=== PATIENT | female | born 1990 | race African-American/Black ===

== ENCOUNTER 2017-04-25 02:06 | Emergency (ER) | payer OTHER ==
[~2017-04-25] VITALS: Ht 170.2 cm; Wt 97.3 kg
[~2017-04-25 02:06] MED LIST: Motrin PO; Tylenol Extra Streng PO; [UNRECOGNIZED DRUG - CODE] PR
[2017-04-25 03:17] LABS: HEMATOCRIT 38.2 % (36.0-46.0); MCH 27.3 PG (29.0-34.0); MCHC 31.7 G/DL (30.0-36.0); MEAN PLAT.VOLUME 8.9 uM^3 (9.5-12.4); PLATELET COUNT 269 K/uL (156-360); RBC DIS.WIDTH-CV 13.9 % (11.8-14.6); RBC DIS.WIDTH-SD 43.4 % (39-53); RED BLOOD COUNT 4.44 M/uL (3.80-5.20); WHITE BLOOD COUNT 8.1 K/uL (4.1-10.2)
[2017-04-25 03:29] LABS: CHLORIDE 109 mEq/L (99-109); POTASSIUM 3.1 mEq/L (3.7-5.4); SODIUM 144 mEq/L (136-147)
[2017-04-25 03:31] LABS: GLUCOSE 117 mg/dL (70-99)
[2017-04-25 03:32] LABS: ANION GAP 14 MEQ/L (2-14)
[2017-04-25 03:33] LABS: TOTAL BILIRUBIN 0.1 mg/dL (0.0-1.0)
[2017-04-25 03:34] LABS: SERUM ETHYL ALCOHOL 230 mg/dL
[2017-04-25 03:35] LABS: ALKALINE PHOSPHATASE 62 IU/L (3-129); GFR ESTIMATE (CALCULATED) > 59 mL/min/
[2017-04-25 03:37] LABS: UREA NITROGEN (BUN) 10 mg/dL (9-23)
[2017-04-25 03:38] LABS: SALICYLATE < 5.0 MG/DL (15-30)
[2017-04-25 03:48] LABS: QUANTITATIVE HCG < 4.0 MIU/ML
[2017-04-25 07:18] VITALS: BP 118/69
[2017-04-25 07:28] LABS: AMPHETAMINE NEGATIVE (500 ng/mL); BARBITURATES NEGATIVE (200 ng/mL); BENZODIAZEPINES NEGATIVE (150 ng/mL); COCAINE NEGATIVE (150 ng/mL); INTERNAL CONTROLS VALID? YES; METHADONE NEGATIVE (200 ng/mL); METHAMPHETAMINE NEGATIVE (500 ng/mL); OPIATES (MORPHINE) NEGATIVE (100 ng/mL); OXYCODONE NEGATIVE (100 ng/mL); PHENCYCLIDINE NEGATIVE (25 ng/mL); PROPOXYPHENE NEGATIVE (300 ng/mL); THC CANNABINOIDS PRESUMPTIVE POSITIVE (50 ng/mL); TRICYCLIC ANTIDEPRESSANTS NEGATIVE (300 ng/mL)
[2017-04-25 07:29] LABS: ADD MEDTOX COMMENT Y
[2017-04-25 07:37] LABS: ADD MIUA? NO; BILIRUBIN NEGATIVE; BLOOD NEGATIVE; COLOR LT. YELLOW ((YELLOW)); GLUCOSE (STRIP) NEGATIVE; KETONES NEGATIVE; LEUKOCYTES NEGATIVE; NITRITE NEGATIVE; PH, URINE 6.5 (5-8); PROTEIN (STRIP) NEGATIVE; UCUL ADDED? NO; UROBILINOGEN 0.2 MG/DL (0.2-1.0)
== END 2017-04-25 07:22 | disposition home or self-care (01) ==
LOC: EME → EDBD 02:06 → EME 02:06
PROVIDERS: Physician Assistant
DX: F10.129 Alcohol abuse with intoxication, unspecified (principal); F12.10 Cannabis abuse, uncomplicated; Y90.7 Blood alcohol level of 200-239 mg/100 ml
CPT/HCPCS: 80053; 81003; 84702; 84999; 85027; 99281; 99285; G0480

== ENCOUNTER 2018-03-08 18:27 | Emergency (ER) | payer OTHER ==
[~2018-03-08] VITALS: Ht 165.1 cm; Wt 102.9 kg
[2018-03-08] MEDS ORDERED: PEN-VEE K,VEET500 MG PO (20:31)
[2018-03-08] MEDS ORDERED: PERCOCET 5/31 TABLET PO (20:31)
[2018-03-08 21:27] VITALS: BP 153/96
== END 2018-03-08 21:27 | disposition home or self-care (01) ==
LOC: EME 18:27
DX: K04.7 Periapical abscess without sinus (principal); K02.9 Dental caries, unspecified; F17.200 Nicotine dependence, unspecified, uncomplicated
CPT/HCPCS: 99281; 99283